=== PATIENT | female | born 1955 | race Caucasian/White ===

== ENCOUNTER 2017-03-11 11:05 | Emergency (ER) | payer MEDICARE, OTHER ==
[~2017-03-11 11:05] MED LIST: Lactated Ringers 1,000 ML IV ONE
--- NOTE | 2017-03-11 11:10 | EDM.PDOC ---
ED HPI GENERAL MEDICAL PROBLEM - General Chief Complaint: Gastrointestinal Problem Stated Complaint: STOMACH ISSUE Time Seen by Provider: 03/11/17 11:05 Source of Information: Reports: Patient, EMS, Old Records History Limitations: Reports: No Limitations - History of Present Illness INITIAL COMMENTS - FREE TEXT/NARRATIVE: 62 yo female here with a pHx of multiple abdominal surgeries is brought in by EMS for abdominal pain that began about 0300h today. Had one small emesis since the onset of pain. No change in bowel habits. No fever or chills. Has mild sx's consistent with a UTI(has had many). Pain is mostly across the entire upper abdomen. Denies distention. Received Zofran 4 mg ODT and Dilaudid 1 mg IM per EMS with good relief. Had a brief syncopal episode with an attempt at standing in the presence of EMS. BP systolic just over 100 at the home, other vitals normal. EMS did a 12 lead EKG which showed no obvious ischemia. Onset: Today Onset Date: 03/11/17 Onset Time: 03:00 Duration: Hour(s):, Constant Location: Reports: Abdomen Quality: Reports: Ache Severity: Severe Improves with: Reports: Medication (Dilaudid per EMS) Worsens with: Reports: Other (unknown) Context: Reports: Other (multiple prior abdominal surgeries.) Associated Symptoms: Reports: Nausea/Vomiting (Now better after Zofran) Treatments ORTHOPTIST: Reports: Other Medication(s) (Dilaudid 1 mg IM and Zofran ODT 4 mg SL) - Related Data Allergies Allergy/AdvReac Type Severity Reaction Status Date / Time Penicillins Allergy Rash Verified 03/11/17 13:39 Sulfa (Sulfonamide Allergy Rash Verified 03/11/17 13:39 Antibiotics) Home Meds: Home Meds Cholecalciferol (Vitamin D3) [Vitamin D] 1 tab PO DAILY 06/02/14 [History] Desipramine 150 mg PO BEDTIME 06/02/14 [History] Gabapentin [Neurontin] 2 tab PO ASDIRECTED 06/02/14 [History] Gabapentin [Neurontin] 2 tab PO ASDIRECTED PRN 06/02/14 [History] Multivitamin with Minerals [Multiple Vitamin] 1 tab PO DAILY 06/02/14 [History] [place]-3/DHA/Epa/Fish Oil [Fish Oil 1,000 mg Softgel] 1 cap PO DAILY 06/02/14 [ History] Propranolol [Propranolol CR 24 Hr] 80 mg PO DAILY 06/02/14 [History] Psyllium Husk [Metamucil] 12 cap PO DAILY 06/02/14 [History] SUMAtriptan Succinate [Imitrex] 1 tab PO ASDIRECTED PRN 06/02/14 [History] clonazePAM [Klonopin] 1 mg PO TID 06/02/14 [History] diphenhydrAMINE HCl [Benadryl] 25 mg PO ASDIRECTED PRN 06/02/14 [History] fluvoxaMINE [Luvox] 50 mg PO ASDIRECTED 06/02/14 [History] fluvoxaMINE [Luvox] 250 mg PO BEDTIME 06/02/14 [History] Ranitidine [Zantac] 75 mg PO ASDIRECTED 03/11/17 [History] Past Medical History - Past Health History Medical/Surgical History: Denies Medical/Surgical History Musculoskeletal History: Reports: Other (See Below) Other Musculoskeletal History: BACK INJURY Psychiatric History: Reports: Anxiety, Depression Social & Family History - Tobacco Use Smoking Status *Q: Never Smoker Second Hand Smoke Exposure: No - Caffeine Use Caffeine Use: Reports: None - Alcohol Use Days Per Week of Alcohol Use: 1 - Recreational Drug Use Recreational Drug Use: No ED ROS GENERAL - Review of Systems Review Of Systems: See Below Constitutional: Reports: Weakness HEENT: Reports: No Symptoms Respiratory: Reports: No Symptoms Cardiovascular: Reports: No Symptoms Endocrine: Reports: No Symptoms GI/Abdominal: Reports: Abdominal Pain, Nausea, Vomiting (one small) : Reports: Dysuria (mild) Musculoskeletal: Reports: No Symptoms Skin: Reports: Other (extremities cold, not new) Neurological: Reports: No Symptoms Psychiatric: Reports: No Symptoms ED EXAM, GI/ABD - Physical Exam Exam: See Below Exam Limited By: No Limitations General Appearance: Alert, WD/WN, No Apparent Distress Eyes: Bilateral: Normal Appearance Ears: Normal External Exam, Normal Canal, Hearing Grossly Normal Nose: Normal Inspection, Normal Mucosa, No Blood Throat/Mouth: Normal Inspection, Normal Lips, Normal Teeth, Normal Oropharynx, Normal Voice, No Airway Compromise Head: Atraumatic, Normocephalic Neck: Normal Inspection Respiratory/Chest: No Respiratory Distress, Lungs Clear, Normal Breath Sounds, No Accessory Muscle Use, Chest Non-Tender Cardiovascular: Regular Rate, Rhythm, No Edema GI/Abdominal: Soft, No Distention, Hypoactive Bowel Sounds, Tenderness (mild diffuse, mostly upper abdomen(much better after EMS' Dilaudid dose)), Other ( multiple abdominal scars from prior surgeries, non-incarcerated hernia RLQ). No : Hyperactive Bowel Sounds, Distention, Guarding, Rigidity Extremities: Normal Inspection, Normal Range of Motion, Non-Tender, No Pedal Edema Neurological: Alert, Oriented, CN II-XII Intact, Normal Cognition Psychiatric: Normal Affect, Normal Mood Course - Vital Signs Text/Narrative:: LR 1000 ml IV, Reglan 10 mg IV, Dilaudid 0.5 mg IV, LR IV @ 150 ml/h CT abdomen/pelvis with IV and oral contrast-incarcerated hernia Unable to reduce in ER. Dr. Jacques accepted @ 141, [place] surgery - Orders/Labs/Meds Orders: Active Orders 24 hr Category Date Time Status Abdomen Pelvis w Cont [CT] Stat Exams 03/11/17 11:20 Taken Iopamidol [Isovue-370 (76%)] Med 03/11/17 13:15 Active 100 ml IV . DIRECTED Lactated Ringers @ 150 MLS/HR(1000ml) Med 03/11/17 14:15 Ordered Lactated Ringers [Ringers, Lactated] 1,000 ml IV ASDIRECTED Medication Orders Iopamidol (Isovue-370 (76%)) 100 ml IV . DIRECTED NATHANIEL Last Admin: 03/11/17 13:28 Dose: 85 ml Labs: Laboratory Tests 03/11/17 03/11/17 03/11/17 Range/Units 11:27 11:27 12:00 WBC 16.7 H (4.5-12.0) X10-3/uL RBC 5.03 (3.23-5.20) x10(6)uL Hgb 15.8 H (11.5-15.5) g/dL Hct 46.7 (30.0-51.3) % MCV 93.0 (80-96) fL MCH 31.4 (27.7-33.6) pg MCHC 33.8 (32.2-35.4) g/dL RDW 12.5 (11.5-15.5) % Plt Count 345 (125-369) X10(3)uL Sodium 134 L (135-145) mmol/L Potassium 4.3 (3.5-5.3) mmol/L Chloride 97 L (100-110) mmol/L Carbon Dioxide 23 (23-29) mmol/L BUN 25 H (8-23) mg/dL Creatinine 1.4 H (0.6-1.3) mg/dL Est Cr Clr Drug Dosing TNP Estimated GFR (MDRD) 38 L (>60) BUN/Creatinine Ratio 17.9 (9-20) Glucose 133 H (80-116) mg/dL Calcium 10.4 H (8.6-10.2) mg/dL Total Bilirubin 0.5 (0.1-1.3) mg/dL AST 34 H D (5-27) IU/L ALT 34 H (14-26) IU/L Alkaline Phosphatase 62 (56-112) IU/L Total Protein 8.4 H (6.0-8.0) g/dL Albumin 4.3 (3.2-4.6) g/dL Globulin 4.1 g/dL Albumin/Globulin Ratio 1.1 Amylase 49 (28-100) U/L Urine Color Yellow (YELLOW) Urine Appearance Clear (CLEAR) Urine pH 6.5 (5.0-6.5) Ur Specific [place] 1.015 (1.010-1.025) Urine Protein Negative (NEGATIVE) mg/dL Urine Glucose (UA) Normal (NEGATIVE) mg/dL Urine Ketones Negative (NEGATIVE) mg/dL Urine Occult Blood Negative (NEGATIVE) Urine Nitrite Negative (NEGATIVE) Urine Bilirubin Negative (NEGATIVE) Urine Urobilinogen Normal (NEGATIVE) mg/dL Ur Leukocyte Esterase Negative (NEGATIVE) Urine RBC Not seen (0) Urine WBC 0-5 (0) Ur Squamous Epith Cells Occasional (NS,R,O) Urine Bacteria Rare H (NS) Meds: Medications Generic Name Dose Route Start Last Admin Trade Name Freq PRN Reason Stop Dose Admin Iopamidol 100 ml 03/11/17 13:15 03/11/17 13:28 Isovue-370 (76%) IV 85 ml . DIRECTED NATHANIEL Administration Discontinued Medications Generic Name Dose Route Start Last Admin Trade Name Freq PRN Reason Stop Dose Admin Hydromorphone HCl 0.5 mg 03/11/17 12:06 03/11/17 12:13 Dilaudid IVPUSH 03/11/17 12:07 0.5 mg ONETIME ONE Administration Lactated Ringer's 1,000 mls @ 1,000 mls/hr 03/11/17 11:02 03/11/17 12:12 Ringers, Lactated IV 03/11/17 12:01 500 mls/hr BOLUS ONE Administration Metoclopramide HCl 10 mg 03/11/17 12:05 03/11/17 12:13 Reglan IVPUSH 03/11/17 12:06 10 mg ONETIME ONE Administration Departure - Departure Time of Disposition: 14:30 Disposition: DC/Tfer to Acute Hospital 02 Condition: fair Clinical Impression: Hernia Bowel obstruction Qualifiers: Intestinal obstruction type: unspecified Qualified Code(s): K56.60 - Unspecified intestinal obstruction - Discharge Information - My Orders Last 24 Hours: My Active Orders 03/11/17 11:20 Abdomen Pelvis w Cont [CT] Stat 03/11/17 13:15 Iopamidol [Isovue-370 (76%)] 100 ml IV . DIRECTED 03/11/17 14:15 Lactated Ringers @ 150 MLS/HR(1000ml) Lactated Ringers [Ringers, Lactated] 1, 000 ml IV ASDIRECTED - Assessment/Plan Last 24 Hours: My Active Orders 03/11/17 11:20 Abdomen Pelvis w Cont [CT] Stat 03/11/17 13:15 Iopamidol [Isovue-370 (76%)] 100 ml IV . DIRECTED 03/11/17 14:15 Lactated Ringers @ 150 MLS/HR(1000ml) Lactated Ringers [Ringers, Lactated] 1, 000 ml IV ASDIRECTED
[2017-03-11] MEDS ORDERED: Metoclopramide 10 MG/2 ML SDV IVPUSH ONE (12:05)
[2017-03-11] MEDS ORDERED: HYDROmorphone 2 MG/ML SDV IVPUSH ONE (12:06)
[2017-03-11] MEDS ORDERED: Iopamidol 755 Mg/ML 100 ML Bottle IV SCH (13:15)
[2017-03-11] MEDS ORDERED: Lactated Ringers 1,000 ML IV SCH (14:15)
--- NOTE | 2017-03-11 15:12 | CT ---
INDICATION: Abdominal pain, increased white blood count. CT ABDOMEN AND PELVIS WITH CONTRAST: Spiral 2.5-mm axial sections were obtained through the abdomen and pelvis with oral and IV contrast (85 mL Isovue- 370 at 2.4 mL per second) with sagittal and coronal reconstructions, 03/11/2017 and were compared with 11/08/2015. There are some linear densities in the area of the lingula, which were present previously and are compatible with fibrosis. There is a new finding at the right lung base, suggesting some minimal infiltration and possibly pleural reaction. This may be on the basis of a minimal pneumonia and pleuritis in that area, although it may not be fully visualized and there may be more infiltrate, more cranially in the lung. The heart appears to be near the upper limits of normal in size. The stomach appears to be somewhat distended with barium, but to a greater extent food and/or secretions. Proximal small bowel loops are dilated down to the level of a right-sided ventral hernia which is visualized on multiple images, including axial image # 100. On that image, there is noted transition from dilated loops of small bowel extending into a hernia and a normal diameter loop extending from the ostium of the hernia, more right laterally. Findings strongly suggest an obstruction due to rotation or simply pressure due to the hernia. The hernia has increased in size significantly compared with the previous examination. Previously, the loops of small bowel were not dilated proximal to the hernia, as they are now. Adjacent to the hernia in adjacent intraperitoneal and subcutaneous soft tissues , there is fat stranding with some minimal fluid collection intraperitoneally. This raises question of an inflammatory process associated with this hernia, which would raise suspicion further for ischemia and/or infarction of the bowel loops in that hernia. This should be correlated clinically. Additionally, there is a new hernia ventrally in the area of the umbilicus extending to the left of midline, which also includes a loop of dilated small bowel with no definite obstruction at that hernia. That hernia has a wider mouth. Anastomosis with rectosigmoid colon is noted in this patient who is post subtotal colectomy. The urinary bladder had a normal appearance. Calcifications are noted in the abdominal aorta, at the origin of the right renal artery, and superior mesenteric artery. Iliac artery and femoral artery calcifications are also noted. Adrenal glands appear to be normal. Multiple tiny low-density lesions are noted in the kidneys, likely representing tiny cysts with one small cyst seen at the right kidney upper pole approximately 1.5 cm in diameter. Only very minimal cystic change is seen at the left kidney. No other retroperitoneal masses were identified. There is some irregularity in the cortices of the kidneys, suggesting renal cortical scarring along with fat stranding that is seen with renal fascial thickening. No gallstones were demonstrated. The liver had a normal appearance. The spleen and pancreas appeared essentially normal. The common bile duct appeared normal in caliber in the head of the pancreas. Degenerative changes and disk disease L5-S1, with grade 2 anterolisthesis and vacuum disk phenomenon at that level. Severe degenerative disk disease and hypertrophic degenerative changes also at L2-3, with vacuum disk phenomenon, and T12 and L1 cranial endplate compression fractures and anterior loss of vertebral body volume at T12 of indeterminate age, likely old. Dextroconcave scoliosis lower middle lumbar spine is noted. IMPRESSION: 1. Obstruction of the bowel is noted at a right-sided ventral hernia, lower abdomen/upper pelvis, with the possibility of bowel ischemia and/or infarction suggested by fat stranding and small collections of intraperitoneal fluid at the site of the hernia and dilated small bowel loops. 2. New ventral hernia paraumbilical to the left, including dilated loop of small bowel which is not obstructive. 3. Post subtotal colectomy. 4. Post appendectomy. 5. ASD. 6. Degenerative changes and disk disease L5-S1, with grade 2 anterolisthesis and vacuum disk phenomenon at that level. Severe degenerative disk disease and hypertrophic degenerative changes also at L2-3, with vacuum disk phenomenon, and T12 and L1 cranial endplate compression fractures and anterior loss of vertebral body volume at T12 of indeterminate age, likely old. Dextroconcave scoliosis lower middle lumbar spine is noted. 7. Cannot exclude a minimal right lower lobe pneumonia and pleuritis. 8. Minimal cystic changes in the kidneys, more prominent on the right than left. Renal cortical scarring also noted. CT PELVIS: Examination of the pelvis was obtained by CT, as noted above, and revealed the right-sided hernia with probable obstruction in the hernia. Dilated loop of bowel goes in, with exiting bowel markedly limited in diameter, suggesting a significant obstruction at the lip of the hernia. This could be on the basis of a twist or simply dilatation of the remainder of the bowel, decreasing the ostium size of the hernia. Subtotal colectomy is noted. Report was given in person to Dr. Ponce at 1400 hours, 03/11/2017. Total Exam DLP = 1017.34 mGy-cm. MTDD
[2017-03-11 16:00] VITALS: BP 123/54
== END 2017-03-11 15:00 ==
LOC: FB.ED 11:05
DX: K46.0 Unspecified abdominal hernia with obstruction, without gangrene (principal); F32.9 Major depressive disorder, single episode, unspecified; F41.9 Anxiety disorder, unspecified; Z88.0 Allergy status to penicillin; Z88.2 Allergy status to sulfonamides; Z79.899 Other long term (current) drug therapy
CPT/HCPCS: 36415; 74177; 80053; 81001; 82150; 85027; 96361; 96374; 96375; 99285; J1170; J2765; J7120; Q9967

== ENCOUNTER 2021-06-02 19:56 | Emergency (ER) | payer MEDICARE, OTHER ==
[2021-06-02] MEDS ORDERED: Sodium Chloride 0.9% 10 ML Syringe FLUSH PRN (20:20)
--- NOTE | 2021-06-02 21:10 | EDM.PDOC ---
ED HPI GENERAL MEDICAL PROBLEM - General Chief Complaint: Syncope Stated Complaint: SYNCOPAL EPISODE Time Seen by Provider: 06/02/21 20:20 Source of Information: Reports: Patient, Family History Limitations: Reports: Other (Patient and her spouse are poor historians) - History of Present Illness INITIAL COMMENTS - FREE TEXT/NARRATIVE: 66-year-old lady brought to the emergency department by EMS secondary to syncope at home. Note that both the patient and her spouse are poor historians. Patient was trying to walk to the bathroom from bed and socks down on her walker and became unresponsive. Spouse states that she was breathing slowly, shallow, and irregular and was unresponsive. Called EMS for support. - Related Data Allergies Allergy/AdvReac Type Severity Reaction Status Date / Time Penicillins Allergy Rash Verified 11/11/18 22:57 Sulfa (Sulfonamide Allergy Rash Verified 11/11/18 22:57 Antibiotics) Home Meds: Home Meds Cholecalciferol (Vitamin D3) [Vitamin D] 1 tab PO DAILY 06/02/14 [History] Desipramine 150 mg PO BEDTIME 06/02/14 [History] Gabapentin [Neurontin] 2 tab PO ASDIRECTED PRN 06/02/14 [History] Multivitamin with Minerals [Multiple Vitamin] 1 tab PO DAILY 06/02/14 [History] Propranolol [Propranolol CR 24 Hr] 80 mg PO DAILY 06/02/14 [History] Psyllium Husk [Metamucil] 12 cap PO DAILY 06/02/14 [History] clonazePAM [Klonopin] 1 mg PO TID 06/02/14 [History] diphenhydrAMINE HCL [Benadryl] 25 mg PO ASDIRECTED PRN 06/02/14 [History] fluvoxaMINE [Luvox] 50 mg PO ASDIRECTED 06/02/14 [History] fluvoxaMINE [Luvox] 250 mg PO BEDTIME 06/02/14 [History] Ibuprofen 800 mg PO Q8HR PRN 11/11/18 [History] Past Medical History - Past Health History Medical/Surgical History: Denies Medical/Surgical History Cardiovascular History: Reports: Hypertension Musculoskeletal History: Reports: Other (See Below) Other Musculoskeletal History: BACK INJURY, R shoulder dislocation Psychiatric History: Reports: Anxiety, Depression - Past Surgical History GI Surgical History: Reports: Cholecystectomy, Colostomy, Hernia, Abdominal, Hernia Repair/Other, Small Bowel Social & Family History - Family History Family Medical History: No Pertinent Family History - Caffeine Use Caffeine Use: Reports: None Other Caffeine Use: decaf ED ROS GENERAL - Review of Systems Review Of Systems: See Below Constitutional: Reports: Malaise, Weakness, Fatigue HEENT: Reports: No Symptoms Respiratory: Reports: No Symptoms Cardiovascular: Reports: No Symptoms Endocrine: Reports: No Symptoms GI/Abdominal: Reports: No Symptoms : Reports: Urinary Retention Musculoskeletal: Reports: No Symptoms Skin: Reports: No Symptoms Neurological: Reports: Weakness, Gait Disturbance Psychiatric: Reports: Confusion Hematologic/Lymphatic: Reports: No Symptoms Immunologic: Reports: No Symptoms - Physical Exam Exam: See Below Exam Limited By: No Limitations General Appearance: Alert Eye Exam: Bilateral Eye: EOMI Respiratory/Chest: Other (Heart sounds are distant and difficult to auscultate, no obvious murmur, regular rhythm, regular rate) GI/Abdominal: Normal Bowel Sounds, Soft, Non-Tender Neuro Exam (Abbreviated): Alert, Other (Patient is mildly confused but she is oriented to person, place, time, distant memory intact) Extremities: Normal Capillary Refill, Other (All 4 distal extremities appear cyanotic but this is a chronic condition for this patient) Psychiatric: Anxious Skin Exam: Cool, Cyanosis Course - Vital Signs Text/Narrative:: Evaluation of initial lab shows mild leukocytosis with elevated creatinine and evaluation of past medical history shows acute kidney injury. Mildly elevated troponin but within normal limits likely secondary to bladder outlet obstruction and acute kidney injury. CT abdomen and pelvis without contrast showed significant bladder distention to the level of the umbilicus. Straight cath yielded 1300 mL of urine. Last Recorded V/S: Last Vital Signs Temp 36.8 C 06/02/21 22:29 Pulse 86 06/02/21 22:29 Resp 16 06/02/21 22:29 BP 118/70 06/02/21 22:29 Pulse Ox 98 06/02/21 22:29 - Orders/Labs/Meds Orders: Active Orders 24 hr Category Date Time Status EKG Documentation Completion [RC] ASDIRECTED Care 06/02/21 20:23 Active EKG Documentation Completion [RC] STAT Care 06/02/21 20:22 Active Insert Urinary Catheter [OM.PC] Q24H Care 06/03/21 03:45 Ordered Urinary Catheter Assessment [RC] QSHIFT Care 06/03/21 03:44 Active Abdomen Pelvis wo Cont [CT] Stat Exams 06/03/21 01:15 Taken Sodium Chloride 0.9% [Saline Flush] Med 06/02/21 20:20 Active 10 ml FLUSH ASDIRECTED PRN Peripheral IV Insertion Adult [OM.PC] Routine Oth 06/02/21 20:20 Ordered EKG 12 Lead [EK] Routine Ther 06/02/21 20:22 Ordered Medication Orders Sodium Chloride (Sodium Chloride 0.9% 10 Ml Syringe) 10 ml FLUSH ASDIRECTED PRN PRN Reason: Keep Vein Open Last Admin: 06/02/21 22:18 Dose: 10 ml Documented by: SONIYA Labs: Laboratory Tests 06/02/21 06/02/21 06/02/21 Range/Units 20:10 20:10 20:10 WBC 10.4 H (3.0-10.3) x10-3/uL RBC 4.65 (3.60-5.20) x10(6)uL Hgb 14.7 (11.4-15.5) g/dL Hct 44.4 (34.2-48.2) % MCV 95.4 (76.7-100.5) fL MCH 31.7 (23.9-33.9) pg MCHC 33.2 (31.9-34.8) g/dL RDW 13.5 (12.3-16.5) % Plt Count 238 (151-488) x10(3)uL MPV 8.6 (7.1-12.4) fL Neut % (Auto) 72.7 (30.8-76.2) % Lymph % (Auto) 13.0 L (18.4-52.1) % [place] % (Auto) 12.4 (4.4-15.7) % Eos % (Auto) 1.2 (0.6-8.1) % Baso % (Auto) 0.7 (0.2-1.5) % Neut # (Auto) 7.6 H (1.5-6.3) x10-3/uL Lymph # (Auto) 1.4 (1.0-4.4) x10-3/uL [place] # (Auto) 1.3 H (0.3-1.0) x10-3/uL Eos # (Auto) 0.1 (0.0-0.8) x10-3/uL Baso # (Auto) 0.1 (0.0-0.1) x10-3/uL Sodium 133 L (135-145) mmol/L Potassium 3.8 (3.5-5.3) mmol/L Chloride 98 L (100-110) mmol/L Carbon Dioxide 23 (21-32) mmol/L BUN 42 H (7-18) mg/dL Creatinine 2.6 H* (0.55-1.02) mg/dL Est Cr Clr Drug Dosing TNP Estimated GFR (MDRD) 18 L (>60) BUN/Creatinine Ratio 16.2 (9-20) Glucose 92 (80-116) mg/dL Calcium 8.8 (8.6-10.2) mg/dL Total Bilirubin 0.6 (0.1-1.3) mg/dL AST 22 (5-25) IU/L ALT 46 H (12-36) U/L Alkaline Phosphatase 78 (56-112) IU/L Troponin I 20.9 (4.0-60.3) pg/mL Total Protein 7.3 (6.0-8.0) g/dL Albumin 3.5 (3.2-4.6) g/dL Globulin 3.8 g/dL Albumin/Globulin Ratio 0.9 Urine Color (YELLOW) Urine Appearance (CLEAR) Urine pH (5.0-6.5) Ur Specific [place] (1.010-1.025) Urine Protein (NEGATIVE) mg/dL Urine Glucose (UA) (NORMAL) mg/dL Urine Ketones (NEGATIVE) mg/dL Urine Occult Blood (NEGATIVE) Urine Nitrite (NEGATIVE) Urine Bilirubin (NEGATIVE) Urine Urobilinogen (NEGATIVE) mg/dL Ur Leukocyte Esterase (NEGATIVE) Urine RBC (0-5) Urine WBC (0-5) Ur Squamous Epith Cells (NS,R,O) Urine Bacteria (NS) 06/02/21 06/02/21 06/03/21 Range/Units 21:50 23:50 01:20 WBC (3.0-10.3) x10-3/uL RBC (3.60-5.20) x10(6)uL Hgb (11.4-15.5) g/dL Hct (34.2-48.2) % MCV (76.7-100.5) fL MCH (23.9-33.9) pg MCHC (31.9-34.8) g/dL RDW (12.3-16.5) % Plt Count (151-488) x10(3)uL MPV (7.1-12.4) fL Neut % (Auto) (30.8-76.2) % Lymph % (Auto) (18.4-52.1) % [place] % (Auto) (4.4-15.7) % Eos % (Auto) (0.6-8.1) % Baso % (Auto) (0.2-1.5) % Neut # (Auto) (1.5-6.3) x10-3/uL Lymph # (Auto) (1.0-4.4) x10-3/uL [place] # (Auto) (0.3-1.0) x10-3/uL Eos # (Auto) (0.0-0.8) x10-3/uL Baso # (Auto) (0.0-0.1) x10-3/uL Sodium (135-145) mmol/L Potassium (3.5-5.3) mmol/L Chloride (100-110) mmol/L Carbon Dioxide (21-32) mmol/L BUN (7-18) mg/dL Creatinine (0.55-1.02) mg/dL Est Cr Clr Drug Dosing Estimated GFR (MDRD) (>60) BUN/Creatinine Ratio (9-20) Glucose (80-116) mg/dL Calcium (8.6-10.2) mg/dL Total Bilirubin (0.1-1.3) mg/dL AST (5-25) IU/L ALT (12-36) U/L Alkaline Phosphatase (56-112) IU/L Troponin I 37.0 41.2 (4.0-60.3) pg/mL Total Protein (6.0-8.0) g/dL Albumin (3.2-4.6) g/dL Globulin g/dL Albumin/Globulin Ratio Urine Color Yellow (YELLOW) Urine Appearance Clear (CLEAR) Urine pH 5.0 (5.0-6.5) Ur Specific [place] 1.020 (1.010-1.025) Urine Protein Trace (NEGATIVE) mg/dL Urine Glucose (UA) Normal (NORMAL) mg/dL Urine Ketones Negative (NEGATIVE) mg/dL Urine Occult Blood Negative (NEGATIVE) Urine Nitrite Negative (NEGATIVE) Urine Bilirubin Negative (NEGATIVE) Urine Urobilinogen Normal (NEGATIVE) mg/dL Ur Leukocyte Esterase Negative (NEGATIVE) Urine RBC 0-5 (0-5) Urine WBC 0-5 (0-5) Ur Squamous Epith Cells Few H (NS,R,O) Urine Bacteria Few H (NS) Meds: Medications Generic Name Dose Route Start Last Admin Trade Name Freq PRN Reason Stop Dose Admin Sodium Chloride 10 ml 06/02/21 20:20 06/02/21 22:18 Sodium Chloride 0.9% 10 Ml Syringe FLUSH 10 ml ASDIRECTED PRN Administration Keep Vein Open Departure - Departure Time of Disposition: 05:18 Disposition: DC/Tfer to Other 70 Clinical Impression: Urinary obstruction, Altered mental status, Syncope and collapse, Weakness - Discharge Information *PRESCRIPTION DRUG MONITORING PROGRAM REVIEWED*: Not Applicable *COPY OF PRESCRIPTION DRUG MONITORING REPORT IN PATIENT NOEL: Not Applicable Instructions: Weakness, [id number], Syncope Referrals: Elsieo Howard MD [Primary Care Provider] - Forms: ED Department Discharge Sepsis Event Note (ED) - Evaluation Sepsis Screening Result: No Definite Risk - Focused Exam Vital Signs: Vital Signs Temp Pulse Resp BP Pulse Ox 06/02/21 22:29 36.8 C 86 16 118/70 98 06/02/21 20:35 36.2 C 85 16 111/73 96 - My Orders Last 24 Hours: My Active Orders 06/02/21 20:20 Sodium Chloride 0.9% [Saline Flush] 10 ml FLUSH ASDIRECTED PRN Peripheral IV Insertion Adult [OM.PC] Routine 06/02/21 20:22 EKG Documentation Completion [RC] STAT EKG 12 Lead [EK] Routine 06/02/21 20:23 EKG Documentation Completion [RC] ASDIRECTED 06/03/21 01:15 Abdomen Pelvis wo Cont [CT] Stat 06/03/21 03:44 Urinary Catheter Assessment [RC] QSHIFT 06/03/21 03:45 Insert Urinary Catheter [OM.PC] Q24H - Assessment/Plan Last 24 Hours: My Active Orders 06/02/21 20:20 Sodium Chloride 0.9% [Saline Flush] 10 ml FLUSH ASDIRECTED PRN Peripheral IV Insertion Adult [OM.PC] Routine 06/02/21 20:22 EKG Documentation Completion [RC] STAT EKG 12 Lead [EK] Routine 06/02/21 20:23 EKG Documentation Completion [RC] ASDIRECTED 06/03/21 01:15 Abdomen Pelvis wo Cont [CT] Stat 06/03/21 03:44 Urinary Catheter Assessment [RC] QSHIFT 06/03/21 03:45 Insert Urinary Catheter [OM.PC] Q24H
--- NOTE | 2021-06-02 21:58 | PCM.EKG ---
#1 Interpretation EKG Date: 06/02/21 Time: 19:58 EKG Interpretation Comments: Normal sinus rhythm, rate 88, large T wave throughout precordial leads and inferior leads, nonspecific ST-T segment abnormalities
[2021-06-03] MEDS ORDERED: Acetaminophen 325 MG Tab PO ONE (04:04)
[2021-06-03] MEDS ORDERED: Ondansetron 4 MG/2 ML SDV IVPUSH ONE (04:04)
[2021-06-03 08:56] VITALS: BP 118/74; PULSE 81
== END 2021-06-03 08:25 | disposition other institution (70) ==
LOC: FB.ED 19:56
DX: R55 Syncope and collapse (principal); N13.9 Obstructive and reflux uropathy, unspecified; R41.82 Altered mental status, unspecified; I10 Essential (primary) hypertension; R53.1 Weakness; Z88.0 Allergy status to penicillin; Z88.2 Allergy status to sulfonamides; Z79.899 Other long term (current) drug therapy
CPT/HCPCS: 36415; 51701; 74176; 80053; 81001; 84484; 85025; 93005; 96374; 99285; A9270; J2405; 36410

== ENCOUNTER 2021-08-25 16:55 | Observation (INO) | payer MEDICARE, OTHER ==
[2021-08-25] MEDS ORDERED: cloNIDine 0.1 MG Tab PO ONE ×2 (17:48→19:24)
[2021-08-25] MEDS ORDERED: Diltiazem 25 MG/5 ML SDV IVPUSH ONE (19:24)
[2021-08-25] MEDS ORDERED: Aspirin 81 MG Tab.Chew PO ONE (19:25)
[2021-08-25] MEDS ORDERED: LORazepam 2 MG/ML SDV IVPUSH ONE (19:25)
--- NOTE | 2021-08-25 19:26 | EDM.PDOC ---
ED HPI GENERAL MEDICAL PROBLEM - General Chief Complaint: Cardiovascular Problem Stated Complaint: HIGH BLOOD PRESSURE Time Seen by Provider: 08/25/21 17:00 Source of Information: Reports: Patient, Family History Limitations: Reports: No Limitations - History of Present Illness INITIAL COMMENTS - FREE TEXT/NARRATIVE: c/o elevated BP pt quite anxious today, a good friend had a , she was too distressed to go, watched it online her BP was elevated and she called the pharmacist who sent her to the walk-in clinic who sent her here BP 210/101 on arrival, visibly anxious and shaking, at bedside who is very calm EKG 3m ago showed normal t-waves, EKG now with inverted t-waves in I and MARTHA and flat T-waves in V4-V66 that are now trop x 1 neg, yet pt will need to be admitted for further evaluation no n/v, no f/c/d, no cough/sob has had COVID vax x 2 no previous cardiac problems, had 3 neg troponins 3m ago in May Headache Pain Score (Numeric/FACES): 5 - Related Data Allergies Allergy/AdvReac Type Severity Reaction Status Date / Time Penicillins Allergy Rash Verified 08/25/21 17:38 Sulfa (Sulfonamide Allergy Rash Verified 08/25/21 17:38 Antibiotics) Home Meds: Home Meds Propranolol [Propranolol CR 24 Hr] 160 mg PO DAILY 06/02/14 [History] clonazePAM [Klonopin] 1 mg PO TID PRN 06/02/14 [History] fluvoxaMINE [Luvox] 300 mg PO BEDTIME 06/02/14 [History] Eletriptan Hydrobromide [Eletriptan HBr] 40 mg PO BID PRN 08/25/21 [History] Levothyroxine 125 mcg PO DAILY 08/25/21 [History] Zolpidem Tartrate [Ambien] 10 mg PO BEDTIME PRN 08/25/21 [History] busPIRone [Buspar] 20 mg PO BID 08/25/21 [History] Past Medical History - Past Health History Medical/Surgical History: Denies Medical/Surgical History Cardiovascular History: Reports: Hypertension Musculoskeletal History: Reports: Other (See Below) Other Musculoskeletal History: BACK INJURY, R shoulder dislocation Psychiatric History: Reports: Anxiety, Depression - Past Surgical History GI Surgical History: Reports: Cholecystectomy, Colostomy, Hernia, Abdominal, Hernia Repair/Other, Small Bowel Social & Family History - Family History Family Medical History: No Pertinent Family History - Caffeine Use Caffeine Use: Reports: None Other Caffeine Use: decaf ED ROS GENERAL - Review of Systems Review Of Systems: See Below Constitutional: Reports: No Symptoms HEENT: Reports: No Symptoms Respiratory: Reports: No Symptoms Cardiovascular: Reports: No Symptoms Endocrine: Reports: No Symptoms GI/Abdominal: Reports: No Symptoms : Reports: No Symptoms Musculoskeletal: Reports: No Symptoms Skin: Reports: No Symptoms Neurological: Reports: No Symptoms Psychiatric: Reports: Anxiety Hematologic/Lymphatic: Reports: No Symptoms Immunologic: Reports: No Symptoms ED EXAM, GENERAL - Physical Exam Exam: See Below Exam Limited By: No Limitations General Appearance: Alert, WD/WN, Other (extremely anxious to the point that she is shaking, having difficulty concentrating, distracted, talking about multiple stressors simultaneously) Eye Exam: Bilateral Eye: EOMI Ears: Hearing Grossly Normal Nose: Normal Inspection, Normal Mucosa, No Blood Throat/Mouth: Normal Inspection, Normal Voice, No Airway Compromise Head: Atraumatic, Normocephalic Neck: Normal Inspection, Supple, Non-Tender, Full Range of Motion. No: Lymphadenopathy (R), Lymphadenopathy (L) Respiratory/Chest: No Respiratory Distress, Lungs Clear, Normal Breath Sounds, No Accessory Muscle Use, Chest Non-Tender Cardiovascular: Regular Rate, Rhythm, No Edema, No Murmur GI/Abdominal: Soft, Non-Tender, No Organomegaly Back Exam: Normal Inspection, Full Range of Motion Extremities: Normal Inspection, Normal Range of Motion, Non-Tender, No Pedal Edema Neurological: Alert, Oriented, CN II-XII Intact, Normal Cognition, No Motor/Sensory Deficits Psychiatric: Anxious Skin Exam: Warm, Dry, Intact, Normal Color, No Rash Lymphatic: No Adenopathy Course - Vital Signs Last Recorded V/S: Last Vital Signs Temp 36.7 C 08/25/21 17:00 Pulse 74 08/25/21 17:00 Resp 16 08/25/21 17:00 BP 201/102 H 08/25/21 20:06 Pulse Ox 99 08/25/21 17:00 - Orders/Labs/Meds Orders: Active Orders 24 hr Category Date Time Status EKG 12 Lead [EK] Routine Ther 08/25/21 17:15 Ordered Labs: Laboratory Tests 08/25/21 08/25/21 08/25/21 Range/Units 17:50 17:50 17:50 WBC 6.9 (3.0-10.3) x10-3/uL RBC 4.18 (3.60-5.20) x10(6)uL Hgb 13.2 (11.4-15.5) g/dL Hct 39.8 (34.2-48.2) % MCV 95.2 (76.7-100.5) fL MCH 31.6 (23.9-33.9) pg MCHC 33.2 (31.9-34.8) g/dL RDW 14.2 (12.3-16.5) % Plt Count 243 (151-488) x10(3)uL MPV 9.0 (7.1-12.4) fL Neut % (Auto) 68.5 (30.8-76.2) % Lymph % (Auto) 15.5 L (18.4-52.1) % Wetzel % (Auto) 13.3 (4.4-15.7) % Eos % (Auto) 1.7 (0.6-8.1) % Baso % (Auto) 1.0 (0.2-1.5) % Neut # (Auto) 4.7 (1.5-6.3) x10-3/uL Lymph # (Auto) 1.1 (1.0-4.4) x10-3/uL Wetzel # (Auto) 0.9 (0.3-1.0) x10-3/uL Eos # (Auto) 0.1 (0.0-0.8) x10-3/uL Baso # (Auto) 0.1 (0.0-0.1) x10-3/uL Sodium 138 (135-145) mmol/L Potassium 4.2 (3.5-5.3) mmol/L Chloride 105 D (100-110) mmol/L Carbon Dioxide 21 (21-32) mmol/L BUN 25 H D (7-18) mg/dL Creatinine 1.4 H (0.55-1.02) mg/dL Est Cr Clr Drug Dosing 36.00 mL/min Estimated GFR (MDRD) 37 L (>60) BUN/Creatinine Ratio 17.9 (9-20) Glucose 94 (80-116) mg/dL Calcium 9.4 (8.6-10.2) mg/dL Magnesium (1.8-2.5) mg/dL Total Bilirubin 0.3 (0.1-1.3) mg/dL AST 25 D (5-25) IU/L ALT 48 H (12-36) U/L Alkaline Phosphatase 71 (56-112) IU/L Troponin I 26.1 (4.0-60.3) pg/mL C-Reactive Protein < 0.2 L (0.5-0.9) mg/dL Total Protein 7.3 (6.0-8.0) g/dL Albumin 3.8 (3.2-4.6) g/dL Globulin 3.5 g/dL Albumin/Globulin Ratio 1.1 Urine Color (YELLOW) Urine Appearance (CLEAR) Urine pH (5.0-6.5) Ur Specific [place] (1.010-1.025) Urine Protein (NEGATIVE) mg/dL Urine Glucose (UA) (NORMAL) mg/dL Urine Ketones (NEGATIVE) mg/dL Urine Occult Blood (NEGATIVE) Urine Nitrite (NEGATIVE) Urine Bilirubin (NEGATIVE) Urine Urobilinogen (NEGATIVE) mg/dL Ur Leukocyte Esterase (NEGATIVE) Urine RBC (0-5) Urine WBC (0-5) Ur Squamous Epith Cells (NS,R,O) Urine Bacteria (NS) Urine Mucus (NS) SARS-CoV-2 RNA (JUANCARLOS) (NEGATIVE) 08/25/21 08/25/21 08/25/21 Range/Units 17:50 18:10 20:00 WBC (3.0-10.3) x10-3/uL RBC (3.60-5.20) x10(6)uL Hgb (11.4-15.5) g/dL Hct (34.2-48.2) % MCV (76.7-100.5) fL MCH (23.9-33.9) pg MCHC (31.9-34.8) g/dL RDW (12.3-16.5) % Plt Count (151-488) x10(3)uL MPV (7.1-12.4) fL Neut % (Auto) (30.8-76.2) % Lymph % (Auto) (18.4-52.1) % Wetzel % (Auto) (4.4-15.7) % Eos % (Auto) (0.6-8.1) % Baso % (Auto) (0.2-1.5) % Neut # (Auto) (1.5-6.3) x10-3/uL Lymph # (Auto) (1.0-4.4) x10-3/uL Wetzel # (Auto) (0.3-1.0) x10-3/uL Eos # (Auto) (0.0-0.8) x10-3/uL Baso # (Auto) (0.0-0.1) x10-3/uL Sodium (135-145) mmol/L Potassium (3.5-5.3) mmol/L Chloride (100-110) mmol/L Carbon Dioxide (21-32) mmol/L BUN (7-18) mg/dL Creatinine (0.55-1.02) mg/dL Est Cr Clr Drug Dosing mL/min Estimated GFR (MDRD) (>60) BUN/Creatinine Ratio (9-20) Glucose (80-116) mg/dL Calcium (8.6-10.2) mg/dL Magnesium 2.1 (1.8-2.5) mg/dL Total Bilirubin (0.1-1.3) mg/dL AST (5-25) IU/L ALT (12-36) U/L Alkaline Phosphatase (56-112) IU/L Troponin I (4.0-60.3) pg/mL C-Reactive Protein (0.5-0.9) mg/dL Total Protein (6.0-8.0) g/dL Albumin (3.2-4.6) g/dL Globulin g/dL Albumin/Globulin Ratio Urine Color Yellow (YELLOW) Urine Appearance Slightly cloudy (CLEAR) Urine pH 6.0 (5.0-6.5) Ur Specific [place] 1.020 (1.010-1.025) Urine Protein Negative (NEGATIVE) mg/dL Urine Glucose (UA) Normal (NORMAL) mg/dL Urine Ketones Negative (NEGATIVE) mg/dL Urine Occult Blood Moderate H (NEGATIVE) Urine Nitrite Negative (NEGATIVE) Urine Bilirubin Negative (NEGATIVE) Urine Urobilinogen Normal (NEGATIVE) mg/dL Ur Leukocyte Esterase Small H (NEGATIVE) Urine RBC 0-5 (0-5) Urine WBC 0-5 (0-5) Ur Squamous Epith Cells Few H (NS,R,O) Urine Bacteria Few H (NS) Urine Mucus Few H (NS) SARS-CoV-2 RNA (JUANCARLOS) Negative (NEGATIVE) Meds: Medications Discontinued Medications Generic Name Dose Route Start Last Admin Trade Name Lul PRN Reason Stop Dose Admin Aspirin 324 mg 08/25/21 19:25 08/25/21 20:05 Aspirin 81 Mg Tab.Chew PO 08/25/21 19:26 324 mg ONETIME ONE Administration Clonidine HCl 0.1 mg 08/25/21 17:48 08/25/21 17:52 Clonidine 0.1 Mg Tab PO 08/25/21 17:49 0.1 mg ONETIME ONE Administration Clonidine HCl 0.1 mg 08/25/21 19:24 08/25/21 20:06 Clonidine 0.1 Mg Tab PO 08/25/21 19:25 0.1 mg ONETIME ONE Administration Diltiazem HCl 10 mg 08/25/21 19:24 08/25/21 20:58 Diltiazem 25 Mg/5 Ml Sdv IVPUSH 08/25/21 19:25 10 mg ONETIME ONE Administration Lorazepam 0.5 mg 08/25/21 19:25 08/25/21 20:43 Lorazepam 2 Mg/Ml Sdv IVPUSH 08/25/21 19:26 0.5 mg ONETIME ONE Administration - Re-Assessments/Exams Free Text/Narrative Re-Assessment/Exam: 08/25/21 19:26 trop is neg however EKG [id number] at 17:02 with new inverted t-waves in I and AVL and new flattened t-waves in V4-6 c/w [id number] when pt had nice upright t-waves pt never had COVID, has had COVID vax x 2 pt very anxious pt reports that a friend , who had been their cruise staff member when pt's children were young pt very anxious, visibly shaking and distraught, BP still 200/101 after clondine 0.1 mg PO and not improved admission for cardiac monitoring and to r/o NM recommended d/t new EKG changes, pt agreed (reluctantly) as did will start IV and give additional meds, COVID test pending, d/w Beth MONTERROSO 08/25/21 20:29 inside outside sales representative successful started IV in pt's foot COVID still pending pt continues to be anxious re many issues, yet needs further evaluation, to which she agrees BP subsequently came down to 130/70 after additional meds (dilt 30 mg IV, Ativan 0.5 mg IV) Departure - Departure Time of Disposition: 21:23 Disposition: Refer to Observation Condition: Good Clinical Impression: Abnormal EKG, Ruled out for myocardial infarction, Grief reaction, Hypertensive urgency, Anxiety reaction, Chronic renal insufficiency Sepsis Event Note (ED) - Focused Exam Vital Signs: Vital Signs Temp Pulse Resp BP BP Pulse Ox Pulse Ox 08/25/21 20:06 201/102 H 08/25/21 17:52 197/101 H 08/25/21 17:00 36.7 C 74 16 217/100 H 99 99 - My Orders Last 24 Hours: My Active Orders 08/25/21 17:15 EKG 12 Lead [EK] Routine - Assessment/Plan Last 24 Hours: My Active Orders 08/25/21 17:15 EKG 12 Lead [EK] Routine
[2021-08-25] MEDS ORDERED: ELETRIPTAN HYDROBROMIDE 40 MG PO PRN (22:30)
[2021-08-25] MEDS ORDERED: ClonazePAM 1 MG Tab PO PRN (22:30)
[2021-08-25] MEDS ORDERED: Zolpidem 10 MG Tab PO PRN (22:30)
[2021-08-25] MEDS ORDERED: Magnesium Hydroxide 400 MG/5 ML Susp 30 ML Cup PO PRN (22:32)
[2021-08-25] MEDS ORDERED: Acetaminophen 325 MG Tab PO PRN (22:32)
[2021-08-25] MEDS ORDERED: Bisacodyl 5 MG Tab PO PRN (22:32)
[2021-08-25] MEDS ORDERED: Enoxaparin 40 MG/0.4 ML Syringe SUBCUT SCH (22:45)
[2021-08-26] MEDS ORDERED: LORazepam 2 MG/ML SDV IVPUSH PRN (00:03)
[2021-08-26] MEDS: BUSPIRONE 10 MG PO SCH ×2 (00:03→08:57)
--- NOTE | 2021-08-26 08:06 | PCM.HP.2 ---
H&P History of Present Illness - General Date of Service: 08/26/21 Admit Problem/Dx: Admission Diagnosis/Problem Admission Diagnosis/Problem Hypertension Source of Information: Patient, Old Records, Provider - History of Present Illness Initial Comments - Free Text/Narative: 66-year-old lady called her pharmacist due to elevated blood pressure at home. She was sent to the walk-in clinic and then to the emergency department due to significant hypertension at 200/100. He was evaluated in the emergency department and found to have significant anxiety secondary to of a close friend. Her past medical record is significant for anxiety. She is treated with Klonopin, 1 mg, 3 times daily as needed for anxiety and insomnia. In the emergency department she did not have any chest pain but she did have headache. Her EKG showed inverted T waves in aVL and lead I with nonspecific ST-T segment abnormalities in V5 and V6. Troponins were negative x3. She was admitted to observation. Headache Pain Score (Numeric/FACES): 5 - Related Data Allergies/Adverse Reactions: Allergies Allergy/AdvReac Type Severity Reaction Status Date / Time Penicillins Allergy Rash Verified 08/25/21 17:38 Sulfa (Sulfonamide Allergy Rash Verified 08/25/21 17:38 Antibiotics) Home Medications: Home Meds Propranolol [Inderal LA] 160 mg PO DAILY 06/02/14 [History] clonazePAM [Klonopin] 1 mg PO TID PRN 06/02/14 [History] fluvoxaMINE [Luvox] 300 mg PO BEDTIME 06/02/14 [History] Eletriptan Hydrobromide [Eletriptan HBr] 40 mg PO BID PRN 08/25/21 [History] Levothyroxine 125 mcg PO DAILY 08/25/21 [History] Zolpidem Tartrate [Ambien] 10 mg PO BEDTIME PRN 08/25/21 [History] busPIRone [Buspar] 20 mg PO BID 08/25/21 [History] Past Medical History - Past Health History Medical/Surgical History: Denies Medical/Surgical History Cardiovascular History: Reports: Hypertension PERCH MENDER History: Reports: Ectopic Musculoskeletal History: Reports: None, Back Pain, Chronic, Other (See Below) Other Musculoskeletal History: BACK INJURY, R shoulder dislocation Psychiatric History: Reports: Anxiety, Depression - Infectious Disease History Infectious Disease History: Reports: None - Past Surgical History GI Surgical History: Reports: Cholecystectomy, Colostomy, Hernia, Abdominal, Hernia Repair/Other, Small Bowel Female Surgical History: Reports: Salpingo-Oophorectomy Musculoskeletal Surgical History: Reports: None Social & Family History - Family History Family Medical History: No Pertinent Family History - Tobacco Use Tobacco Use Status *Q: Never Tobacco User Second Hand Smoke Exposure: No - Caffeine Use Caffeine Use: Reports: Coffee Other Caffeine Use: decaf - Recreational Drug Use Recreational Drug Use: No H&P Review of Systems - Review of Systems: Review Of Systems: See Below General: Reports: No Symptoms HEENT: Reports: Headaches, Other Pulmonary: Reports: No Symptoms Cardiovascular: Reports: No Symptoms Gastrointestinal: Reports: No Symptoms Genitourinary: Reports: No Symptoms Musculoskeletal: Reports: No Symptoms Skin: Reports: No Symptoms Psychiatric: Reports: Anxiety Neurological: Reports: No Symptoms Hematologic/Lymphatic: Reports: No Symptoms Immunologic: Reports: No Symptoms Exam - Exam Exam: See Below - Vital Signs Vital Signs: Last Vital Signs Temp 36.6 C 08/26/21 02:33 Pulse 65 08/26/21 02:33 Resp 18 08/26/21 02:33 BP 136/67 08/26/21 02:33 Pulse Ox 96 08/26/21 02:33 Weight: 75.568 kg - Exam Quality Assessment: Supplemental Oxygen General: Alert, Oriented, Cooperative HEENT: EOMI Neck: Supple Lungs: Clear to Auscultation, Normal Respiratory Effort Cardiovascular: Regular Rate, Regular Rhythm GI/Abdominal Exam: Normal Bowel Sounds, Soft, Non-Tender Back Exam: Normal Inspection. No: CVA Tenderness (R), CVA Tenderness (L) Extremities: Normal Inspection, No Pedal Edema Peripheral Pulses: 2+: Radial (L), Radial (R), Dorsalis Pedis (L), Dorsalis Pedis (R) Skin: Warm, Dry, Intact Neurological: Cranial Nerves Intact Neuro Extensive - Mental Status: Alert, Oriented x3, Normal Cognition Neuro Extensive - Motor, Sensory, Reflexes: CN II-XII Intact Psychiatric: Labile Mood, Anxious - Patient Data Lab Results Last 24 hrs: Laboratory Results - last 24 hr 08/25/21 08/25/21 08/25/21 Range/Units 17:50 17:50 17:50 WBC 6.9 (3.0-10.3) x10-3/uL RBC 4.18 (3.60-5.20) x10(6)uL Hgb 13.2 (11.4-15.5) g/dL Hct 39.8 (34.2-48.2) % MCV 95.2 (76.7-100.5) fL MCH 31.6 (23.9-33.9) pg MCHC 33.2 (31.9-34.8) g/dL RDW 14.2 (12.3-16.5) % Plt Count 243 (151-488) x10(3)uL MPV 9.0 (7.1-12.4) fL Neut % (Auto) 68.5 (30.8-76.2) % Lymph % (Auto) 15.5 L (18.4-52.1) % Harper % (Auto) 13.3 (4.4-15.7) % Eos % (Auto) 1.7 (0.6-8.1) % Baso % (Auto) 1.0 (0.2-1.5) % Neut # (Auto) 4.7 (1.5-6.3) x10-3/uL Lymph # (Auto) 1.1 (1.0-4.4) x10-3/uL Harper # (Auto) 0.9 (0.3-1.0) x10-3/uL Eos # (Auto) 0.1 (0.0-0.8) x10-3/uL Baso # (Auto) 0.1 (0.0-0.1) x10-3/uL Sodium 138 (135-145) mmol/L Potassium 4.2 (3.5-5.3) mmol/L Chloride 105 D (100-110) mmol/L Carbon Dioxide 21 (21-32) mmol/L BUN 25 H D (7-18) mg/dL Creatinine 1.4 H (0.55-1.02) mg/dL Est Cr Clr Drug Dosing 36.00 mL/min Estimated GFR (MDRD) 37 L (>60) BUN/Creatinine Ratio 17.9 (9-20) Glucose 94 (80-116) mg/dL Calcium 9.4 (8.6-10.2) mg/dL Magnesium (1.8-2.5) mg/dL Total Bilirubin 0.3 (0.1-1.3) mg/dL AST 25 D (5-25) IU/L ALT 48 H (12-36) U/L Alkaline Phosphatase 71 (56-112) IU/L Troponin I 26.1 (4.0-60.3) pg/mL C-Reactive Protein < 0.2 L (0.5-0.9) mg/dL Total Protein 7.3 (6.0-8.0) g/dL Albumin 3.8 (3.2-4.6) g/dL Globulin 3.5 g/dL Albumin/Globulin Ratio 1.1 Urine Color (YELLOW) Urine Appearance (CLEAR) Urine pH (5.0-6.5) Ur Specific Haughton (1.010-1.025) Urine Protein (NEGATIVE) mg/dL Urine Glucose (UA) (NORMAL) mg/dL Urine Ketones (NEGATIVE) mg/dL Urine Occult Blood (NEGATIVE) Urine Nitrite (NEGATIVE) Urine Bilirubin (NEGATIVE) Urine Urobilinogen (NEGATIVE) mg/dL Ur Leukocyte Esterase (NEGATIVE) Urine RBC (0-5) Urine WBC (0-5) Ur Squamous Epith Cells (NS,R,O) Urine Bacteria (NS) Urine Mucus (NS) SARS-CoV-2 RNA (JUANCARLOS) (NEGATIVE) 08/25/21 08/25/21 08/25/21 Range/Units 17:50 18:10 20:00 WBC (3.0-10.3) x10-3/uL RBC (3.60-5.20) x10(6)uL Hgb (11.4-15.5) g/dL Hct (34.2-48.2) % MCV (76.7-100.5) fL MCH (23.9-33.9) pg MCHC (31.9-34.8) g/dL RDW (12.3-16.5) % Plt Count (151-488) x10(3)uL MPV (7.1-12.4) fL Neut % (Auto) (30.8-76.2) % Lymph % (Auto) (18.4-52.1) % Harper % (Auto) (4.4-15.7) % Eos % (Auto) (0.6-8.1) % Baso % (Auto) (0.2-1.5) % Neut # (Auto) (1.5-6.3) x10-3/uL Lymph # (Auto) (1.0-4.4) x10-3/uL Harper # (Auto) (0.3-1.0) x10-3/uL Eos # (Auto) (0.0-0.8) x10-3/uL Baso # (Auto) (0.0-0.1) x10-3/uL Sodium (135-145) mmol/L Potassium (3.5-5.3) mmol/L Chloride (100-110) mmol/L Carbon Dioxide (21-32) mmol/L BUN (7-18) mg/dL Creatinine (0.55-1.02) mg/dL Est Cr Clr Drug Dosing mL/min Estimated GFR (MDRD) (>60) BUN/Creatinine Ratio (9-20) Glucose (80-116) mg/dL Calcium (8.6-10.2) mg/dL Magnesium 2.1 (1.8-2.5) mg/dL Total Bilirubin (0.1-1.3) mg/dL AST (5-25) IU/L ALT (12-36) U/L Alkaline Phosphatase (56-112) IU/L Troponin I (4.0-60.3) pg/mL C-Reactive Protein (0.5-0.9) mg/dL Total Protein (6.0-8.0) g/dL Albumin (3.2-4.6) g/dL Globulin g/dL Albumin/Globulin Ratio Urine Color Yellow (YELLOW) Urine Appearance Slightly cloudy (CLEAR) Urine pH 6.0 (5.0-6.5) Ur Specific Haughton 1.020 (1.010-1.025) Urine Protein Negative (NEGATIVE) mg/dL Urine Glucose (UA) Normal (NORMAL) mg/dL Urine Ketones Negative (NEGATIVE) mg/dL Urine Occult Blood Moderate H (NEGATIVE) Urine Nitrite Negative (NEGATIVE) Urine Bilirubin Negative (NEGATIVE) Urine Urobilinogen Normal (NEGATIVE) mg/dL Ur Leukocyte Esterase Small H (NEGATIVE) Urine RBC 0-5 (0-5) Urine WBC 0-5 (0-5) Ur Squamous Epith Cells Few H (NS,R,O) Urine Bacteria Few H (NS) Urine Mucus Few H (NS) SARS-CoV-2 RNA (JUANCARLOS) Negative (NEGATIVE) 08/25/21 08/26/21 Range/Units 22:50 06:08 WBC (3.0-10.3) x10-3/uL RBC (3.60-5.20) x10(6)uL Hgb (11.4-15.5) g/dL Hct (34.2-48.2) % MCV (76.7-100.5) fL MCH (23.9-33.9) pg MCHC (31.9-34.8) g/dL RDW (12.3-16.5) % Plt Count (151-488) x10(3)uL MPV (7.1-12.4) fL Neut % (Auto) (30.8-76.2) % Lymph % (Auto) (18.4-52.1) % Harper % (Auto) (4.4-15.7) % Eos % (Auto) (0.6-8.1) % Baso % (Auto) (0.2-1.5) % Neut # (Auto) (1.5-6.3) x10-3/uL Lymph # (Auto) (1.0-4.4) x10-3/uL Harper # (Auto) (0.3-1.0) x10-3/uL Eos # (Auto) (0.0-0.8) x10-3/uL Baso # (Auto) (0.0-0.1) x10-3/uL Sodium (135-145) mmol/L Potassium (3.5-5.3) mmol/L Chloride (100-110) mmol/L Carbon Dioxide (21-32) mmol/L BUN (7-18) mg/dL Creatinine (0.55-1.02) mg/dL Est Cr Clr Drug Dosing mL/min Estimated GFR (MDRD) (>60) BUN/Creatinine Ratio (9-20) Glucose (80-116) mg/dL Calcium (8.6-10.2) mg/dL Magnesium (1.8-2.5) mg/dL Total Bilirubin (0.1-1.3) mg/dL AST (5-25) IU/L ALT (12-36) U/L Alkaline Phosphatase (56-112) IU/L Troponin I 28.7 27.3 (4.0-60.3) pg/mL C-Reactive Protein (0.5-0.9) mg/dL Total Protein (6.0-8.0) g/dL Albumin (3.2-4.6) g/dL Globulin g/dL Albumin/Globulin Ratio Urine Color (YELLOW) Urine Appearance (CLEAR) Urine pH (5.0-6.5) Ur Specific Haughton (1.010-1.025) Urine Protein (NEGATIVE) mg/dL Urine Glucose (UA) (NORMAL) mg/dL Urine Ketones (NEGATIVE) mg/dL Urine Occult Blood (NEGATIVE) Urine Nitrite (NEGATIVE) Urine Bilirubin (NEGATIVE) Urine Urobilinogen (NEGATIVE) mg/dL Ur Leukocyte Esterase (NEGATIVE) Urine RBC (0-5) Urine WBC (0-5) Ur Squamous Epith Cells (NS,R,O) Urine Bacteria (NS) Urine Mucus (NS) SARS-CoV-2 RNA (JUANCARLOS) (NEGATIVE) Result Diagrams: 08/25/21 17:50 08/25/21 17:50 Sepsis Event Note - Evaluation Sepsis Screening Result: No Definite Risk - Focused Exam Vital Signs: Vital Signs Temp Pulse Resp BP BP Pulse Ox 08/26/21 02:33 36.6 C 65 18 136/67 96 08/25/21 22:33 36.6 C 65 18 130/70 98 08/25/21 22:12 36.6 C 65 18 130/70 98 08/25/21 20:06 201/102 H - Problem List (1) Abnormal EKG SNOMED Code(s): 349497686 ICD Code: R94.31 - ABNORMAL ELECTROCARDIOGRAM [ECG] [EKG] Status: Acute Current Visit: Yes (2) Anxiety reaction SNOMED Code(s): 52971092 ICD Code: F41.1 - GENERALIZED ANXIETY DISORDER Status: Acute Current Visit: Yes (3) Chronic renal insufficiency SNOMED Code(s): 444682076 ICD Code: N18.9 - CHRONIC KIDNEY DISEASE, UNSPECIFIED Status: Chronic Current Visit: Yes (4) Grief reaction SNOMED Code(s): 381832884 ICD Code: F43.21 - ADJUSTMENT DISORDER WITH DEPRESSED MOOD Status: Acute Current Visit: Yes (5) Hypertensive urgency SNOMED Code(s): 184724690 ICD Code: I16.0 - HYPERTENSIVE URGENCY Status: Acute Current Visit: Yes (6) Ruled out for myocardial infarction SNOMED Code(s): 994637917 ICD Code: Z03.89 - ENCNTR FOR OBS FOR OTH SUSPECTED DISEASES AND COND RULED OUT Status: Acute Current Visit: Yes (7) Headache SNOMED Code(s): 81628212 ICD Code: R51 - HEADACHE * DO NOT USE * Status: Acute Current Visit: No Problem List Initiated/Reviewed/Updated: Yes Orders Last 24hrs: Active Orders 24 hr Category Date Time Status Admission Status [Patient Status] [ADT] Routine ADT 08/25/21 20:29 Active Cardiac Monitoring [RC] .As Directed Care 08/25/21 20:29 Active Cardiac Monitoring [RC] CONTINUOUS Care 08/25/21 22:33 Active EKG Documentation Completion [RC] ASDIRECTED Care 08/26/21 07:59 Ordered Height and Weight [RC] ASDIRECTED Care 08/25/21 22:32 Active Oxygen Therapy [RC] PRN Care 08/25/21 22:33 Active Up With Assistance [RC] ASDIRECTED Care 08/25/21 22:32 Active VTE/DVT Education [RC] Per Unit Routine Care 08/25/21 22:33 Active Vital Signs [RC] 00,04,08,12,16,20 Care 08/25/21 22:33 Active Heart Healthy Diet [DIET] Diet 08/26/21 Breakfast Active Acetaminophen [TylenoL] Med 08/25/21 22:32 Active 650 mg PO Q4H PRN ClonazePAM [KlonoPIN] Med 08/25/21 22:30 Active 1 mg PO TID PRN Eletriptan Hydrobromide [Eletriptan HBr] Med 08/25/21 22:30 Pending 40 mg PO BID PRN Enoxaparin [Lovenox] Med 08/25/21 22:45 Active 40 mg SUBCUT Q24H LORazepam [Ativan] Med 08/26/21 00:03 Active 0.5 mg IVPUSH Q6H PRN Levothyroxine Med 08/26/21 09:00 Pending 125 mcg PO DAILY Magnesium Hydroxide [Milk of Magnesia] Med 08/25/21 22:32 Active 30 ml PO Q12H PRN Propranolol [Inderal LA] Med 08/26/21 09:00 Pending 160 mg PO DAILY Zolpidem [Ambien] Med 08/25/21 22:30 Active 10 mg PO BEDTIME PRN bisacodyL [Dulcolax] Med 08/25/21 22:32 Active 5 mg PO DAILY PRN busPIRone [Buspar] Med 08/25/21 23:57 Active 20 mg PO BID fluvoxaMINE [Luvox] Med 08/26/21 21:00 Pending 300 mg PO BEDTIME Resuscitation Status Routine Resus Stat 08/25/21 22:32 Ordered EKG 12 Lead [EK] AM Ther 08/26/21 05:11 Ordered EKG 12 Lead [EK] Routine Ther 08/25/21 17:15 Ordered EKG 12 Lead [EK] Routine Ther 08/25/21 22:32 Ordered EKG 12 Lead [EK] Routine Ther 08/26/21 07:58 Ordered Medication Orders Acetaminophen (Acetaminophen 325 Mg Tab) 650 mg PO Q4H PRN PRN Reason: Pain (Mild 1-3)/fever Bisacodyl (Bisacodyl 5 Mg Tab) 5 mg PO DAILY PRN PRN Reason: Constipation Buspirone HCl (Buspirone 10 Mg TabPt Own) 20 mg PO BID [facility] Last Admin: 08/26/21 00:03 Dose: 20 mg Documented by: TRENT Clonazepam (Clonazepam 1 Mg Tab) 1 mg PO TID PRN PRN Reason: Anxiety Enoxaparin Sodium (Enoxaparin 40 Mg/0.4 Ml Syringe) 40 mg SUBCUT Q24H [facility] Last Admin: 08/26/21 00:03 Dose: 40 mg Documented by: TRENT Fluvoxamine Maleate (Fluvoxamine 100 Mg Tab) 300 mg PO BEDTIME [facility] Levothyroxine Sodium (Levothyroxine 125 Mcg Tab) 125 mcg PO DAILY [facility] Lorazepam (Lorazepam 2 Mg/Ml Sdv) 0.5 mg IVPUSH Q6H PRN PRN Reason: Anxiety Last Admin: 08/26/21 01:06 Dose: 0.5 mg Documented by: TRENT Magnesium Hydroxide (Magnesium Hydroxide 400 Mg/5 Ml Susp 30 Ml Cup) 30 ml PO Q12H PRN PRN Reason: Constipation Non-Formulary Medication (Eletriptan Hydrobromide [Eletriptan Hbr]) 40 mg PO BID PRN PRN Reason: Migraine Non-Formulary Medication (Propranolol [Inderal La]) 160 mg PO DAILY NATHANIEL Zolpidem Tartrate (Zolpidem 10 Mg Tab) 10 mg PO BEDTIME PRN PRN Reason: Insomnia Assessment/Plan Comment:: This document will serve as a discharge summary. Patient's troponins were trended in the emergency department at 677906.1, 397912.7, and 653944.3. EKG performed 08/26 at 0550 and 0824 showed no significant changes. Compared with EKG performed 03 June 2021 at 11:27 AM showed no significant changes. Patient's blood pressure remained within normal limits overnight. Patient will be discharged home and encouraged to take her home medications which include propranolol and clonazepam. Patient encouraged to follow-up with her primary care physician for more definitive treatment of blood pressure, anxiety, depression.
--- NOTE | 2021-08-26 08:47 | PCM.EKG ---
#1 Interpretation EKG Date: 08/26/21 Time: 05:50 EKG Interpretation Comments: Normal sinus rhythm, rate 68, normal axis, nonspecific ST-T segment abnormalities in V5 and V6, aVL and V1, and inferior leads. Compared with EKG performed in May 2014 there was no significant change.
--- NOTE | 2021-08-26 08:48 | PCM.EKG ---
#1 Interpretation EKG Date: 08/26/21 Time: 08:24 EKG Interpretation Comments: Normal sinus rhythm, rate 71, normal axis, nonspecific ST-T segment abnormalities in V5 and V6, aVL and lead I, and inferior leads. When compared with EKG performed earlier today and EKG performed in May 2021 there are no significant changes
[2021-08-26] MEDS ORDERED: Levothyroxine 125 MCG Tab PO SCH (09:00)
[2021-08-26] MEDS ORDERED: PROPRANOLOL 160 MG PO SCH (09:00)
[2021-08-26 12:28] VITALS: BP 164/83; PULSE 75
[2021-08-26] MEDS ORDERED: fluvoxaMINE 100 MG Tab PO SCH (21:00)
== END 2021-08-26 10:00 | disposition home or self-care (01) ==
LOC: FB.ED 16:55 → FB.MS 20:29
PROVIDERS: ADMIT Student in an Organized Health Care Education/Training Program; ATTEND Student in an Organized Health Care Education/Training Program
DX: I12.9 Hypertensive chronic kidney disease with stage 1 through stage 4 chronic kidney disease, or unspecified chronic kidney disease (principal); I16.0 Hypertensive urgency; F41.9 Anxiety disorder, unspecified; G47.00 Insomnia, unspecified; N18.9 Chronic kidney disease, unspecified; F43.21 Adjustment disorder with depressed mood; Z20.822 Contact with and (suspected) exposure to COVID-19; Z79.899 Other long term (current) drug therapy; Z88.0 Allergy status to penicillin; Z88.2 Allergy status to sulfonamides; Z98.890 Other specified postprocedural states; Z90.49 Acquired absence of other specified parts of digestive tract
CPT/HCPCS: 36415; 80053; 81001; 83735; 84484; 85025; 86140; 93005; 96372; 96374; 96375; 96376; 99284; A9270; G0378; J1650; J2060; J3490; U0002; 36410

== ENCOUNTER 2022-06-29 17:11 | Emergency (ER) | payer MEDICARE, OTHER ==
[2022-06-29] MEDS ORDERED: Ondansetron 4 MG Tab.DIS PO STA (17:57)
[2022-06-29] MEDS ORDERED: Ketorolac 30 MG/ML SDV IM STA (17:57)
[2022-06-29 18:29] LABS: ESTIMATED GFR 45 mL/min (>60)
[2022-06-29] MEDS ORDERED: LORazepam 1 MG Tab PO ONE (19:05)
[2022-06-29] MEDS ORDERED: Acetaminophen/HYDROcodone 325-5 MG Tab PO STA (19:05)
[2022-06-29 20:24] VITALS: BP 165/85; PULSE 61
== END 2022-06-29 20:00 | disposition home or self-care (01) ==
LOC: FB.ED 17:11
DX: F41.1 Generalized anxiety disorder (principal); G43.909 Migraine, unspecified, not intractable, without status migrainosus; E87.1 Hypo-osmolality and hyponatremia; I10 Essential (primary) hypertension; Z88.0 Allergy status to penicillin; Z88.2 Allergy status to sulfonamides; Z86.16 Personal history of COVID-19; Z79.899 Other long term (current) drug therapy
CPT/HCPCS: 36415; 71045; 80048; 85025; 96372; 99284; A9270; J1885; Q0162

== ENCOUNTER 2025-06-13 22:32 | Emergency (ER) | payer OTHER ==
[2025-06-13 22:47] VITALS: BP 180/91; PULSE 86
[2025-06-13 22:55] LABS: GLUCOSE,URINE NORMAL (NORMAL); OCCULT BLOOD,URINE NEGATIVE (NEGATIVE)
[2025-06-13 22:56] LABS: APPEARANCE,URINE SLIGHTLY CLOUDY (CLEAR)
[2025-06-13 23:03] LABS: SQUAMOUS EPITHELIAL CELLS,UR FEW (NS,R,O)
[2025-06-13] MEDS: Phenazopyridine 95 MG Tab PO SCH (23:32)
[2025-06-14] MEDS ORDERED: Phenazopyridine 95 MG Tab PO SCH ×2 (09:00)
== END 2025-06-13 23:46 | disposition home or self-care (01) ==
LOC: FB.ED 22:32
DX: N39.0 Urinary tract infection, site not specified (principal); I10 Essential (primary) hypertension; Z88.0 Allergy status to penicillin; Z88.2 Allergy status to sulfonamides; Z79.890 Hormone replacement therapy; Z79.899 Other long term (current) drug therapy; Z86.16 Personal history of COVID-19; Z90.49 Acquired absence of other specified parts of digestive tract
CPT/HCPCS: 51798; 81001; 87086; 87088; 87186; 99283; A9270-GY